=== PATIENT | female | born 1980 | race African-American/Black ===

== ENCOUNTER 2018-06-23 22:48 | Emergency (ER) | payer MEDICAID, OTHER ==
[~2018-06-23] VITALS: Ht 177.8 cm; Wt 138.3 kg
[2018-06-23 23:45] VITALS: BP 154/85
== END 2018-06-24 01:02 | disposition home or self-care (01) ==
LOC: ER 22:48
DX: R04.0 Epistaxis (principal); E78.5 Hyperlipidemia, unspecified

== ENCOUNTER 2018-11-20 13:26 | Emergency (ER) | payer MEDICAID, OTHER ==
[~2018-11-20] VITALS: Ht 177.8 cm; Wt 136.1 kg
[2018-11-20 13:45] VITALS: BP 151/92
== END 2018-11-20 17:17 | disposition home or self-care (01) ==
LOC: ER 13:26
DX: M25.561 Pain in right knee (principal); H60.92 Unspecified otitis externa, left ear; E78.5 Hyperlipidemia, unspecified; Z88.0 Allergy status to penicillin; Z88.2 Allergy status to sulfonamides; W01.0XXA Fall on same level from slipping, tripping and stumbling without subsequent striking against object, initial encounter; Y93.89 Activity, other specified; Y99.8 Other external cause status; Y92.89 Other specified places as the place of occurrence of the external cause
CPT/HCPCS: 73562; 81025